=== PATIENT | female | born 1985 | race Caucasian/White ===

== ENCOUNTER 2021-01-15 04:18 | Day surgery (SDC) | payer OTHER ==
[2021-01-14 16:59] VITALS: BMI 36.6
[2021-01-15] MEDS ORDERED: MIDAZOLAM HCL 2 MG/2 ML SINGLE DOSE VIAL ONE (13:01)
[2021-01-15] MEDS ORDERED: PROPOFOL 20 ML ONE ×2 (13:01→13:24)
[2021-01-15] MEDS ORDERED: KETOROLAC TROMETHAMINE 30 MG/1 ML VIAL ONE (13:20)
[2021-01-15] MEDS ORDERED: IBUPROFEN 600 MG TABLET (FP) PO PRN (13:40)
[2021-01-15] MEDS ORDERED: oxyCODONE HCL 5 MG TABLET PO PRN (13:40)
[2021-01-15] MEDS ORDERED: ONDANSETRON 4 MG/2 ML VIAL IVPUSH PRN (13:40)
[2021-01-15] MEDS ORDERED: IBUPROFEN 800 MG/8 ML IJ IVPB PRN (13:40)
[2021-01-15] MEDS ORDERED: LACTATED RINGERS SOLUTION 1,000 ML IV SCH (13:45)
[2021-01-15] MEDS ORDERED: ELECTROLYTE-148 SOLN 1,000 ML IV SCH (13:45)
[2021-01-15 15:15] VITALS: TEMP 97.8
[2021-01-15 15:37] VITALS: BP 114/60; PULSE 65
== END 2021-01-15 16:00 | disposition home or self-care (01) ==
LOC: JASU-SURG 04:18
PROVIDERS: ATTEND Obstetrics & Gynecology
PROC: 10D18ZZ Extraction of Products of Conception, Retained, Via Natural or Artificial Opening Endoscopic (ICD-10-PCS; principal; 2021-01-15 13:00)
DX: O02.1 Missed abortion (principal); Z3A.12 12 weeks gestation of pregnancy
CPT/HCPCS: 86850; 86900; 86901

== ENCOUNTER 2022-07-24 18:27 | Emergency (ER) | payer OTHER ==
[2022-07-24 18:39] VITALS: BP 102/62; PULSE 69; RESP 18; TEMP 98.1; BMI 36.3
== END 2022-07-24 21:46 | disposition home or self-care (01) ==
LOC: FER 18:27
DX: O26.892 Other specified pregnancy related conditions, second trimester (principal); R10.31 Right lower quadrant pain; Z3A.17 17 weeks gestation of pregnancy
CPT/HCPCS: 76801-TC; 99283-25